=== PATIENT | female | born 1940 | race Two or more races ===

== ENCOUNTER 2017-06-04 13:33 | Inpatient (IN) | payer OTHER ==
[~2017-06-04] VITALS: Ht 157.5 cm; Wt 49.9 kg
[~2017-06-04 13:33] MED LIST: COUMADIN2 MG; LANOXIN0.25 MG; SYNTHROID75 MCG
== END 2017-06-16 09:32 | disposition designated cancer center or children's hospital (05) | DRG 152 ==
LOC: ER 13:33 → SEC-K 06-05 09:20 → MEDJ 06-05 09:20 → MEDI 06-05 10:59 → MEDJ 06-05 11:13 → SURH 06-05 11:33 → MEDJ 06-05 11:48
PROC: 3E0F7GC Introduction of Other Therapeutic Substance into Respiratory Tract, Via Natural or Artificial Opening (ICD-10-PCS; principal; 2017-06-05)
PROC: 4A033R1 Measurement of Arterial Saturation, Peripheral, Percutaneous Approach (ICD-10-PCS; 2017-06-05)
PROC: B246ZZZ Ultrasonography of Right and Left Heart (ICD-10-PCS; 2017-06-05)
PROC: 8E0ZXY6 Isolation (ICD-10-PCS; 2017-06-05)
PROC: BB24ZZZ Computerized Tomography (CT Scan) of Bilateral Lungs (ICD-10-PCS; 2017-06-05)
PROC: 4A12X4Z Monitoring of Cardiac Electrical Activity, External Approach (ICD-10-PCS; 2017-06-05)
DX: J11.1 Influenza due to unidentified influenza virus with other respiratory manifestations (principal); I50.23 Acute on chronic systolic (congestive) heart failure; J98.11 Atelectasis; J90 Pleural effusion, not elsewhere classified; I11.0 Hypertensive heart disease with heart failure; R09.02 Hypoxemia; E11.9 Type 2 diabetes mellitus without complications; I48.0 Paroxysmal atrial fibrillation; I34.0 Nonrheumatic mitral (valve) insufficiency; D69.59 Other secondary thrombocytopenia

== ENCOUNTER 2017-06-30 11:29 | Outpatient (CLI) | payer OTHER | END 2017-06-30 11:39 | disposition home or self-care (01) | LOC: TOM 11:29 | DX: G30.1 Alzheimer's disease with late onset (principal); F01.50 Vascular dementia, unspecified severity, without behavioral disturbance, psychotic disturbance, mood disturbance, and anxiety; G31.09 Other frontotemporal neurocognitive disorder ==